=== PATIENT | male | born 1990 | race Caucasian/White ===

== ENCOUNTER 2023-01-16 00:27 | Day surgery (SDC) | payer BC, OTHER, SELFPAY ==
[2023-01-10 16:49] VITALS: BMI 34.8
--- NOTE | 2023-01-10 17:22 | PC.NURSE ---
Report to the Outpatient Waiting Room, entrance under the green pavilion located off [facility], at time _0615 on date 01/16/23. Planned Procedure Time: 0815 Time changes happen often and if your time is changed the preop area will call you the afternoon before. - You and your visitor will be asked to self-screen and do not enter if you have any COVID symptoms. - Only one visitor is requested with a max of two and NO children visitors are allowed at this time. - The patient visitor may be requested to leave or wait in car when not with patient due to distancing restrictions. - A mask is optional within the hospital at this time. Patients may have clear liquids (water, carbonated beverages, clear teas, apple juice) until 3 hours prior to surgery with a maximum of 20 ounces. - No food from midnight until time of surgery - Infants may have breast milk until 4 hours before surgery, formula 6 hours prior to surgery. - Children will be allowed to drink immediately following surgery. If applicable, please bring a bottle or sippy cup to assist with drinking. Juice, water, soda, and popsicles are readily available. For infants on formula, please bring formula the day of surgery. Pacifiers are allowed. Take the following medications with a SIP of water the morning of surgery: methylphenidate, cariprazine, lithium_ DO NOT STOP ANY OF YOUR OTHER PRESCRIPTION MEDICATIONS PRIOR TO SURGERY ?EXCEPT THE FOLLOWING Medications to discontinue per physician _vitamins, supplements Date to take last dose_01/13/23__ Please no make-up, nail irish, hairspray, perfume, deodorant, or body powder the day of surgery. No jewelry (including any body piercings) or valuables the day of surgery, leave them at home. Please take a shower or bath the night before, or the morning of, surgery with an antibacterial soap. Wear comfortable, loose fitting clothing. Children are encouraged to wear pajamas. - Jewelry must be removed prior to entering the operating room. Rings and piercings that are not removed may be cut off. - The hospital will not accept responsibility for valuables. - Please leave all valuables, including medications, at home the day of surgery. If you are going home after surgery, a licensed regional [employer] company driver must drive you home. - NO public transportation without another adult if you receive anesthesia. - We recommend that an adult stay with you for 24 hours following discharge. - We also recommend that you do not drive, make important decision, drink alcoholic beverages, or take any drugs that were not prescribed by your health care provider for at least 24 hours after your discharge time. For Pediatric surgeries, we recommend two adults accompany the child home. Follow any additional instructions given to you from your surgeon. If you or anyone in your household have experienced Covid symptoms in the past week, please notify your surgeon or the nurse liaison at the phone number below for possible testing. Telephone instructions given to Reed Clancy and asked if any additional questions and then verbalized understanding. Patient advised to call surgeon office or pre surgery nurse liaison [phone] if any additional questions.
[2023-01-16] VITALS (8 sets, daily range): BP systolic 101–140; BP diastolic 66–93; PULSE 54–65; RESP 16–20; TEMP 36.6–36.9; O2SAT 100
[2023-01-16] MEDS: LACTATED RINGERS 1,000 ML 30 ML IV CONT (06:30)
--- NOTE | 2023-01-16 06:56 | WPDANESEPPF ---
Anes - Initial Pre Proc Eval Procedure: Operation Date: 01/16/23 08:30 Proposed Procedures p Cystoscopy, Bladder Biopsy with Fulguration - Fidencio Benoit MD Date/Time: 01/16/23 06:56 Surgeon: Fidencio Benoit MD Pre Op Diagnosis: Overactive Bladder, Bladder Lesions Patient Data Age: 32 Gender: M Height: 1.88 m Weight: 123 kg Allergies Allergy/AdvReac Type Severity Reaction Status Date / Time butalbital Allergy Intermediate Headache Verified 03/01/21 11:10 hydrocodone Allergy Intermediate Itching Verified 03/01/21 11:10 sertraline Allergy Intermediate ED Verified 03/01/21 11:10 zolpidem Allergy Intermediate night Verified 03/01/21 11:10 terrors bupropion AdvReac Intermediate RAHMAN Verified 03/01/21 11:10 Home Medications Medication Instructions Recorded Confirmed Type allopurinol 300 mg tablet 100 mg PO DAILY 02/23/21 01/10/23 History amlodipine 10 mg tablet 10 mg PO DAILY 01/10/23 01/10/23 History baclofen 5 mg tablet 5 mg PO DAILY 01/10/23 01/10/23 History cariprazine 4.5 mg capsule 4.5 mg PO DAILY 01/10/23 01/10/23 History (Vraylar) cyanocobalamin (B12)-cobamamide 1 caryn sublingual DAILY 01/10/23 01/10/23 History 5,000 mcg-100 mcg sublingual lozenge (B12) lithium carbonate 300 mg capsule 1,500 mg PO BID 01/10/23 01/10/23 History magnesium 100 mg capsule 100 mg PO DAILY 01/10/23 01/10/23 History methylphenidate HCl 20 mg tablet 30 mg PO BID 01/10/23 01/10/23 History tadalafil 5 mg tablet 5 mg PO DAILY 01/10/23 01/10/23 History Patient hx anesthesia problems: none Family hx anesthesia problems: none Results Review: All pre-operative results and documents have been reviewed as part of the pre-operative evaluation. [facility] Past Medical History Medical History Depression Hypertension RICHIE on CPAP Smoker Surgical History Surgical History H/O excision of mass April 2019 exc 3cm perineal mass History of facial surgery facial reconstruction 2017 S/P appendectomy S/P hernia repair 2018 right inguinal hernia repair S/P wisdom tooth extraction Family History Family History Unknown Diabetes mellitus Hypertension Allergies Social History Social History Smoking packs per day: 1.5 Smoking cigarettes per day: 30.0 Years smoked: 8 Smoking pack-years: 12.00 Smoking status: Former smoker Tobacco type: cigarettes and e-cigarettes/vaping Smoking end date: 11/26/14 Alcohol intake: never Substance use: current Substance use type: other Last use: 01/10/23 Living arrangements: with family Occupation/Education: unemployed Spiritual care concerns: No Anes - Eval Final PreProcedure Day of Procedure 01/16/23 06:56 Patient weight: obese Heart: regular rate and rhythm Lungs: clear to auscultation Airway: Mallampati scale class II Neurological: alert and oriented Last oral intake: >/= 8 hours ASA classification: III Emergent: no Anesthetic plan: proceed Anesthesia type and monitoring: general LMA and standard monitoring Results Review: All pre-operative results and documents have been reviewed as part of the pre-operative evaluation. Informed Consent: The patient's anesthetic plan and its attendant risks and benefits were discussed with the patient/family/POA. Questions were solicited and answers provided to the satisfaction of the patient/family/POA.
--- NOTE | 2023-01-16 07:03 | WPDHPUPDATE1 ---
History and Physical Update Update Date/Time: 01/16/23 07:03 History and Physical has been reviewed, including an updated exam of the patient. There are NO changes in the patient's condition. Risks, benefits, and alternatives have been discussed and questions answered. Patient agrees to proceed with procedure. Proceed with cysto, bladder biopsy with fulguration
[2023-01-16] MEDS: ceFAZolin 3 GM/D5W 100 ML 100 ML IVPB (07:33)
[2023-01-16] MEDS: LIDOCAINE HCL 2% GEL UROJET 10 ML PKG MUCOUS MEM (07:55)
--- NOTE | 2023-01-16 07:57 | P.OP_ITS ---
Procedure Note - Detailed Date of Procedure 01/16/23 Pre-op Diagnosis Overactive Bladder, Bladder Lesions Post-op Diagnosis Same Procedure Performed Cysto bladder biopsy and fulguration Surgeon Fidencio Benoit MD Anesthesia General Description of Procedure Patient is taken to the operative suite correctly identified. Once anesthesia was obtained was placed in dorsal lithotomy position and prepped and draped usual sterile fashion. Twenty-two [place] scope inserted in the bladder. Prostate is nonobstructive no urethral strictures noted. The patient has a lesion superior lateral to the right ureteral orifice measuring 4-5 mm. Using a cold cup biopsy I biopsied this area and then fulgurated the base. There was little oozing in the prostatic fossa which I have [place] it also. There was good hemostasis at termination of this. 2% viscous lidocaine was inserted into the urethra patient is taken recovery in stable condition. He will call for path results in 1 week. Please send a copy this op note to my office. Estimated Blood Loss 0 Drains No Packing No Pathology Yes Complications No immediate complications Condition Stable Disposition PACU
[2023-01-16] MEDS: oxyCODONE HCL (*CRX) 5 MG TAB IR PO (09:08)
== END 2023-01-16 10:12 | disposition home or self-care (01) ==
PROVIDERS: Visit Provider Urology
PROC: 0TBB8ZX Excision of Bladder, Via Natural or Artificial Opening Endoscopic, Diagnostic (ICD-10-PCS; CPT 52204; principal; 2023-01-16 08:30)
DX: N32.81 Overactive bladder (principal); G47.33 Obstructive sleep apnea (adult) (pediatric); I10 Essential (primary) hypertension; F32.A Depression, unspecified; Z87.891 Personal history of nicotine dependence; E66.9 Obesity, unspecified; Z68.35 Body mass index [BMI] 35.0-35.9, adult
CPT/HCPCS: 52204; 88305; A9270; J0690; J1100; J2250; J2405; J2704; J3010; J7120

== ENCOUNTER 2024-02-29 12:58 | Outpatient (CLI) | payer BC, SELFPAY ==
--- NOTE | ~2024-02-29 | MR_ITS ---
EXAMINATION: MR lumbar spine wo con DATE: 02/29/2024 13:38 INDICATION: Lumbar spondylosis. TECHNIQUE: Magnetic resonance imaging (MRI) of the lumbar spine was performed without intravenous con trast. Sequences included sagittal T2-weighted FSE, sagittal T2-weighted FS FSE, sagittal T1-weighted FSE, and axial T2-weighted FSE. COMPARISON: None FINDINGS: There is 9 degrees dextrocurvature of thoracolumbar spine. There is mild chronic anterior w edging of T11 and T12 vertebral bodies. There is mildly decreased disc height at L4-L5. The distal sp inal cord signal intensity is normal. The conus medullaris is at L1. The following disc levels are sp ecifically discussed: L1-L2: The disc does not extend beyond the endplate margin. There is moderate right and mild left fac et joint osteoarthritis. There is no neural foraminal stenosis. There is no central canal stenosis. L2-L3: There is a right foraminal protrusion. There is moderate bilateral facet joint osteoarthritis. There is mild right neural foraminal stenosis. There is no central canal stenosis. L3-L4: The disc is bulging and has an annular fissure. There is moderate bilateral facet joint osteoa rthritis. There is mild bilateral neural foraminal stenosis. There is mild central canal stenosis. L4-L5: The disc is bulging with superimposed central extrusion. There is mild bilateral facet joint o steoarthritis. There is mild bilateral neural foraminal stenosis. There is mild central canal stenosi s. L5-S1: There is a central protrusion. There is moderate right and severe left facet joint osteoarthri tis. There is mild left neural foraminal stenosis. There is mild central canal stenosis. IMPRESSION: 1. Mild lumbar spondylosis. Reviewed, dictated and finalized at location A. IMPRESSION: 1. Mild lumbar spondylosis.
== END 2024-02-29 12:59 | disposition home or self-care (01) ==
LOC: ANHIMG 12:59
PROVIDERS: Visit Provider Physical Medicine & Rehabilitation Pain Medicine
DX: M43.06 Spondylolysis, lumbar region (principal)
CPT/HCPCS: 72148